=== PATIENT | female | born 1950 | race Caucasian/White ===

== ENCOUNTER → 2016-12-07 | Outpatient (CLI) | payer BC, OTHER ==
--- NOTE | 2016-12-07 16:39 | MR ---
EXAMINATION TYPE: MR brain wo/w con DATE OF EXAM: 12/07/2016 3:49 PM COMPARISON: Prior CT brain March 18, 2016. HISTORY: Epilepsy, Hx of Lung Ca TECHNIQUE: Multiplanar, multisequence images of the brain and brainstem is performed without and with IV contras t, utilizing 13 mL intravenous MultiHance . FINDINGS: Diffusion weighted images demonstrate no evidence of a recent infarct or other diffusion ab normality. There is no worrisome extra-axial fluid collection. The ventricular system and cisternal spaces are normal in size and appearance. The brain volume is age appropriate. There are focal and confluent areas of T2 hyperintensity seen throughout the white matter bilaterally. Lesions are nonspe cific in appearance and distribution but most likely on basis of product of chronic small vessel isch emic change in patient this age. Old area of infarct or encephalomalacia left occipital region near a xial image 22 is redemonstrated. Midline structures demonstrate normal morphology. The craniocervical junction appears within normal limits. Post contrast images demonstrate no abnormal enhancement. The dural venous sinuses appear pa tent. The visualized sinuses are clear and the globes are intact. 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 No suspiciou s enhancing intraparenchymal mass is noted.
== END | disposition home or self-care (01) ==
LOC: RADMRIMAIN 14:53
PROVIDERS: ATTEND Psychiatry & Neurology Pain Medicine
DX: R90.82 White matter disease, unspecified (principal); Z85.9 Personal history of malignant neoplasm, unspecified
CPT/HCPCS: 70553; A9577

== ENCOUNTER 2017-12-15 10:06 | Day surgery (SDC) | payer MEDICARE, OTHER ==
[2017-12-13 09:23] VITALS: BMI 27.2
[~2017-12-15 10:06] MED LIST: LACTATED RINGERS 1,000 ML IV SCH; MORPHINE SULFATE 4 MG/ML SYRINGE IV PRN; fentaNYL (PF) 50 MCG/ML 2 ML AMP IV PRN
[2017-12-15] MEDS ORDERED: IV FLUID CONTINUATION 1,000 ML IV ONE ×2 (10:12)
[2017-12-15] MEDS ORDERED: ceFAZolin 1,000 MG in DEXTROSE/WATER 1 50ML.BAG IVPB STA (10:26)
[2017-12-15] MEDS ORDERED: LIDOCAINE 1% 20 ML VIAL (10MG/ML) FOR IV START INTRADERMA ONE (10:36)
[2017-12-15] MEDS ORDERED: ONDANSETRON 4 MG/2 ML VIAL IVP ONE (10:36)
[2017-12-15] MEDS ORDERED: ALBUTEROL NEBULIZED 2.5 MG/3 ML INHALATION STA (11:03)
[2017-12-15] MEDS ORDERED: IPRATROPIUM 0.5 MG/2.5 ML NEBU INHALATION STA (11:04)
[2017-12-15] MEDS ORDERED: SUCCINYLCHOLINE CHLORIDE 100 MG/5 ML SYR IV ONE (11:24)
[2017-12-15] MEDS ORDERED: GLYCOPYRROLATE 0.2 MG/ML 2 ML VIAL ONE (11:24)
[2017-12-15] MEDS ORDERED: PROPOFOL 10 MG/ML 20 ML VIAL IV ONE (11:24)
[2017-12-15] MEDS ORDERED: ePHEDrine SULFATE/0.9% NACL/PF 50 MG/5 ML SYRINGE IV ONE (11:24)
[2017-12-15] MEDS ORDERED: NEOSTIGMINE 1 MG/ML 10 ML VIAL ONE (11:24)
[2017-12-15] MEDS ORDERED: ALBUTEROL INHALER 60 PUFF/8 GM INHALER INHALATION ONE (11:24)
[2017-12-15] MEDS ORDERED: MIDAZOLAM 2 MG/2 ML VIAL ONE (11:24)
[2017-12-15] MEDS ORDERED: ROCURONIUM BROMIDE 10 MG/ML 10 ML VIAL IV ONE (11:24)
[2017-12-15] MEDS ORDERED: fentaNYL (PF) 50 MCG/ML 2 ML AMP ONE (11:24)
[2017-12-15] MEDS ORDERED: PHENYLEPHRINE-0.9% NACL SYG 1 MG/10 ML SYRINGE ONE (11:24)
[2017-12-15 12:28] VITALS: TEMP 97.4
--- NOTE | 2017-12-15 12:43 | P.OP ---
Date of Procedure: 12/15/17 Preoperative Diagnosis: Mass left chest wall status post left pneumonectomy Postoperative Diagnosis: Same Procedure(s) Performed: Incision and drainage of fluid collection left chest wall, excision of mass left chest wall, closure of pleurocutaneous fistula. Anesthesia: ALEXANDRA Surgeon: Andrea Ortiz Shuttle Preparation Supervisor #1: Luis Fernando Almaguer Estimated Blood Loss (ml): 20 IV fluids (ml): 500 Urine output (ml): 0 Pathology: other (Left chest mass) Condition: stable Disposition: PACU Indications for Procedure: Patient is 2 years status post left pneumonectomy. She has no evidence of recurrence. She does have a left chest mass that waxes and wanes and causes her pain. By CT this seems to be a fluid-filled collection deep to the muscle superficial to the ribs. There was no CT evidence of fistulization into the pleural space however this was suspected. Operative Findings: There was a dense fibrous mass present on the left chest wall deep to the muscle superficial to the ribs. There was dense inflammatory tissue connecting this to the underlying chest wall tissue. On entering the mass there was clear serous fluid evidenced. On resecting the mass there was an opening approximately a centimeter and a half long that tract into the pleural space. Description of Procedure: The patient was brought to the operating room and placed supine on the operating table. She was anesthetized and intubated. She was turned in the right lateral decubitus position. The mass had been marked in the preoperative holding area. Once the patient was anesthetized and turned laterally the mass had pretty much disappeared. There was still a firm area palpable deep to the chest wall tissues. Incision was made over this mass carried down through skin and subcutaneous tissue using the Bovie. The muscle was divided and a fibrous mass was encountered. This mass was dissected out. Inferiorly we entered a thin area which drained clear fluid. We did our best to resect the entire area of fluid collection. Superiorly we encountered a open space between the mass and the pleural space over the top of the sixth rib. Cultures of the fluid were sent. The mass was completely excised and sent for pathology. 0 Ethibond was used to close the muscle to the periosteum of the rib over the fistula. We then placed a 19-Macedonian Murtaza drain into this resultant space and brought it out through the skin anteriorly and inferiorly. We secured it with an 0 Ethibond. The muscle and subcutaneous tissue were then closed with layers of interrupted 2-0 Vicryl. The skin was closed with 0 Vicryl subcuticular stitch. Sterile dressings were applied and the patient was turned supine and extubated and transferred to recovery in stable condition. Plan - Discharge Summary New Discharge Prescriptions: No Action HYDROcodone/APAP 5-325MG [[place] 5-325] 1 tab PO Q4HR PRN PRN Reason: Pain Discharge Medication List HYDROcodone/APAP 5-325MG [[place] 5-325] 1 tab PO Q4HR PRN 12/13/17 [History]
[2017-12-15] MEDS ORDERED: fentaNYL (PF) 50 MCG/ML 2 ML AMP IV ONE (12:44)
[2017-12-15 13:51] VITALS: RESP 16
[2017-12-15] MEDS ORDERED: HYDROcodone/APAP 5-325MG 1 EACH TAB PO ONE ×2 (13:56→14:16)
[2017-12-15 15:34] VITALS: BP 128/69; PULSE 96
--- NOTE | 2017-12-20 12:37 | CDI ---
Outpatient Documentation Clarification Form Date: 12/20/17 CDS/Supplier Quality Manager Name: Yarelis Piper Phone: If any questions, call Cherie Flor Literacy Education Professor at [phone] Patient Name: Cherie Sampson Admit Date: 12/15/17 Discharge Date: 12/15/17 ATTENTION: The [facility] Coding Staff appreciate your assistance in clarifying documentation. Please respond to the clarification below the line at the bottom and electronically sign. The [facility] Coding staff will review the response and follow-up if needed. Please note: Queries are made part of the Legal Health Record. If you have any questions, please contact the Literacy Education Professor. Dear Dr. Ortiz, What is the size of the chest wall mass excision? Thank you for your kind consideration. __About 5 cm. Because it is a cystic mass with communication to the pleural space, the size waxes and wanes. MTDD
== END 2017-12-15 15:47 | disposition home or self-care (01) ==
LOC: OR 10:06
PROVIDERS: ATTEND Thoracic Surgery (Cardiothoracic Vascular Surgery)
DX: C49.3 Malignant neoplasm of connective and soft tissue of thorax (principal); J94.8 Other specified pleural conditions; Z90.2 Acquired absence of lung [part of]; Z85.118 Personal history of other malignant neoplasm of bronchus and lung; J44.9 Chronic obstructive pulmonary disease, unspecified; F17.200 Nicotine dependence, unspecified, uncomplicated
CPT/HCPCS: 81025; 88305; 87070; 87205; 87075; 21554; J2250; J2710; J2405; J3010; J0690; J2370; J0330; J2704